=== PATIENT | female | born 1955 | race Asian ===

== ENCOUNTER 2021-07-08 15:35 | Outpatient (CLI) | payer OTHER | END 2021-07-08 15:36 | disposition home or self-care (01) | LOC: CSHMAMMO 15:35 | PROVIDERS: ATTEND Family Medicine | DX: Z12.31 Encounter for screening mammogram for malignant neoplasm of breast (principal); Z85.72 Personal history of non-Hodgkin lymphomas; Z85.89 Personal history of malignant neoplasm of other organs and systems | CPT/HCPCS: 77063; 77067 ==